=== PATIENT | female | born 1965 | race African-American/Black ===

== ENCOUNTER 2022-12-05 20:03 | Emergency (ER) | payer MEDICAID ==
[~2022-12-05] VITALS: Ht 154.9 cm; Wt 76.4 kg
--- NOTE | 2022-12-05 20:08 | NUR ---
attempted to call pt for triage but was told pt is in the bathroom
[2022-12-05 20:14] VITALS: BP 149/103
--- NOTE | 2022-12-05 20:20 | NUR ---
pt to lobby
[2022-12-05] MEDS ORDERED: ALBU0.0912 IH (20:23)
--- NOTE | 2022-12-05 20:33 | NUR ---
PT TAKEN TO CHAIR A
--- NOTE | 2022-12-05 20:34 | NUR ---
Dr. Lemus examining patient.
--- NOTE | 2022-12-05 20:45 | NUR ---
Patient discharged with v/s stable. Written and verbal after care instructions given and explained. Patient alert, oriented and verbalized understanding of instructions. Ambulatory with steady gait. All questions addressed prior to discharge. ID band removed. Patient advised to follow up with PMD. Rx of Albutero Sulfate given. Opportunity to ask questions provided and answered.
--- NOTE | 2022-12-05 20:48 | NUR ---
The patient's care was reviewed and supervised by Simran Allen RN.
== END 2022-12-05 20:45 | disposition home or self-care (01) ==
LOC: MED 20:03
DX: J44.9 Chronic obstructive pulmonary disease, unspecified (principal); Z76.0 Encounter for issue of repeat prescription; F17.200 Nicotine dependence, unspecified, uncomplicated; Z71.6 Tobacco abuse counseling; Z79.899 Other long term (current) drug therapy
CPT/HCPCS: 99281

== ENCOUNTER 2022-12-12 04:18 | Emergency (ER) | payer MEDICAID ==
[~2022-12-12] VITALS: Ht 157.5 cm; Wt 75.7 kg
[~2022-12-12 04:18] MED LIST: ALBU0.0912 IH
[2022-12-12 04:19] VITALS: BP 120/90
--- NOTE | 2022-12-12 04:19 | NUR ---
LEFT SHOULDER PAIN X A FEW MONTHS. DENIES TRAUMA. PT SAW PMD AND WAS GIVEN MOTRIN
--- NOTE | 2022-12-12 04:29 | NUR ---
PT TO 9
--- NOTE | 2022-12-12 04:30 | NUR ---
Patient being evaluated by physician at bedside.
[2022-12-12] MEDS ORDERED: KETOROLAC 30 MG/ML VIAL IM ONE (04:45)
[2022-12-12 04:58] VITALS: BP 120/90
--- NOTE | 2022-12-12 05:37 | NUR ---
Patient discharged with v/s stable. Written and verbal after care instructions given and explained. Patient verbalized understanding. Ambulatory with steady gait. All questions addressed prior to discharge. Advised to follow up with PMD. pt left with her belongings.
== END 2022-12-12 04:58 | disposition home or self-care (01) ==
LOC: MED 04:18
DX: S16.1XXA Strain of muscle, fascia and tendon at neck level, initial encounter (principal); M25.512 Pain in left shoulder; Z79.899 Other long term (current) drug therapy; X58.XXXA Exposure to other specified factors, initial encounter; Y93.89 Activity, other specified; Y92.89 Other specified places as the place of occurrence of the external cause; Y99.8 Other external cause status
CPT/HCPCS: 96372; 99283; J1885

== ENCOUNTER 2022-12-16 19:14 | Emergency (ER) | payer MEDICAID ==
[~2022-12-16] VITALS: Ht 154.9 cm; Wt 76.2 kg
[2022-12-16 19:48] VITALS: BP 159/110
[2022-12-16] MEDS ORDERED: NAPR-1717 PO (22:16)
[2022-12-16 22:29] VITALS: BP 159/110
--- NOTE | 2022-12-16 22:29 | NUR ---
D/C BY . PRESCRIBED [facility]OS[facility].
== END 2022-12-16 22:29 | disposition home or self-care (01) ==
LOC: MED 19:14
DX: M25.512 Pain in left shoulder (principal); J44.9 Chronic obstructive pulmonary disease, unspecified; Z79.899 Other long term (current) drug therapy
CPT/HCPCS: 73200; 99284

== ENCOUNTER 2023-01-06 20:07 | Emergency (ER) | payer MEDICAID ==
[~2023-01-06] VITALS: Ht 154.9 cm; Wt 75.4 kg
[~2023-01-06 20:07] MED LIST changes: +NAPR-1717 PO
[2023-01-06 21:00] VITALS: BP 160/90
--- NOTE | 2023-01-06 21:03 | NUR ---
TO LOBBY A/W BED AMBULATORY
--- NOTE | 2023-01-07 01:51 | NUR ---
PT TO CHAIR B
--- NOTE | 2023-01-07 01:53 | NUR ---
Patient being evaluated by physician
[2023-01-07] MEDS ORDERED: ROBAC PO (02:47)
[2023-01-07] MEDS ORDERED: AZIT250T4 PO (02:47)
--- NOTE | 2023-01-07 02:54 | NUR ---
Patient discharged with v/s stable. Written and verbal after care instructions given and explained. Patient alert, oriented and verbalized understanding of instructions. Ambulatory with steady gait. All questions addressed prior to discharge. ID band removed. Patient advised to follow up with PMD. Rx of ZITHROMAX AND GUAIFENISIN-CODEINE given. Patient educated on indication of medication including possible reaction and side effects. Opportunity to ask questions provided and answered.
== END 2023-01-07 02:54 | disposition home or self-care (01) ==
LOC: MED 20:07
DX: J20.9 Acute bronchitis, unspecified (principal); M25.512 Pain in left shoulder; J45.909 Unspecified asthma, uncomplicated; J44.9 Chronic obstructive pulmonary disease, unspecified; Z79.899 Other long term (current) drug therapy
CPT/HCPCS: 71045; 99283

== ENCOUNTER 2023-01-19 17:41 | Emergency (ER) | payer MEDICAID ==
[~2023-01-19] VITALS: Ht 157.5 cm; Wt 73.7 kg
[~2023-01-19 17:41] MED LIST changes: +AZIT250T4 PO; +ROBAC PO
[2023-01-19 18:22] VITALS: BP 146/101
[2023-01-19] MEDS ORDERED: ALBU0.0912 IH (19:30)
[2023-01-19] MEDS ORDERED: ROBAC PO (19:30)
[2023-01-19] MEDS ORDERED: NAPR-54 PO (19:30)
--- NOTE | 2023-01-19 19:48 | NUR ---
Patient discharged with v/s stable. Written and verbal after care instructions given and explained. Patient alert, oriented and verbalized understanding of instructions. Ambulatory with steady gait. All questions addressed prior to discharge. ID band removed. Patient advised to follow up with PMD. Rx of ALTBUTEROL, NAPROSYN, AND GUAIFENSIN-CODEINE given. Patient educated on indication of medication including possible reaction and side effects. Opportunity to ask questions provided and answered.
== END 2023-01-19 19:48 | disposition home or self-care (01) ==
LOC: MED 17:41
DX: R05.9 Cough, unspecified (principal); J45.909 Unspecified asthma, uncomplicated; Z76.0 Encounter for issue of repeat prescription; Z79.899 Other long term (current) drug therapy
CPT/HCPCS: 99283

== ENCOUNTER 2023-06-10 20:36 | Emergency (ER) | payer MEDICAID ==
[~2023-06-10] VITALS: Ht 157.5 cm; Wt 76.7 kg
[~2023-06-10 20:36] MED LIST changes: +NAPR-54 PO
[2023-06-10 20:49] VITALS: BP 151/104; PULSE 98; RESP 19; TEMP 97.4; O2SAT 95
[2023-06-10] MEDS ORDERED: predniSONE 20 MG TAB PO ONE (21:05)
[2023-06-10] MEDS ORDERED: ALBUTEROL SULFATE/IPRATROPIU 3 ML SOL IH ONE (21:05)
[2023-06-10] MEDS ORDERED: ALBUTEROL 0.083% 2.5 MG/3 ML NEBU INH ONE (21:05)
[2023-06-10 21:30] VITALS: PULSE 90; RESP 18; O2SAT 100
[2023-06-10] MEDS ORDERED: ACETAMIN/CODEINE 120/12MG-5ML 5 ML UDC PO ONE (23:10)
[2023-06-10] MEDS ORDERED: PRED20TA5 PO (23:10)
[2023-06-10 23:15] VITALS: BP 151/104; PULSE 90; RESP 18; TEMP 97.4; O2SAT 100
== END 2023-06-10 23:15 | disposition home or self-care (01) ==
LOC: MED 20:36
DX: J44.9 Chronic obstructive pulmonary disease, unspecified (principal); J45.901 Unspecified asthma with (acute) exacerbation; Z79.899 Other long term (current) drug therapy
CPT/HCPCS: 94640; 99283; J7512; J7613